=== PATIENT | male | born 1985 | race African-American/Black ===

== ENCOUNTER 2022-03-29 23:12 | Emergency (ER) | payer SELFPAY ==
[~2022-03-29] VITALS: Ht 165.1 cm; Wt 75.0 kg
[2022-03-29 23:16] VITALS: BP 117/57
[2022-03-30] MEDS ORDERED: ALBUTEROL (0.083%) 2.5MG/3ML NEB HHN ONE (00:15)
[2022-03-30] MEDS ORDERED: PREDNISONE 20MG TABLET PO ONE (00:15)
[2022-03-30] MEDS ORDERED: P50 MT (00:59)
[2022-03-30] MEDS ORDERED: ALBU18HF2 IH (00:59)
== END 2022-03-30 01:10 | disposition home or self-care (01) ==
LOC: ER 23:12
DX: U07.1 COVID-19 (principal); J45.901 Unspecified asthma with (acute) exacerbation
CPT/HCPCS: 87426; 93005; 94640; 99284; C9803; J7512; Z7610